=== PATIENT | female | born 1955 | race Caucasian/White ===

== ENCOUNTER 2020-11-25 05:53 | Emergency (ER) | payer BC, OTHER ==
[2020-11-25 06:17] VITALS: BMI 25.2
[2020-11-25 09:37] VITALS: BP 133/79; PULSE 61; TEMP 98.4
== END 2020-11-25 09:36 | disposition home or self-care (01) ==
LOC: JER 05:53
DX: G44.209 Tension-type headache, unspecified, not intractable (principal); Z01.30 Encounter for examination of blood pressure without abnormal findings
CPT/HCPCS: 93005; 93010; 99283-25